=== PATIENT | female | born 1950 | race Caucasian/White ===

== ENCOUNTER 2017-02-18 10:23 | Emergency (ER) | payer OTHER, BC ==
[~2017-02-18] VITALS: Ht 160 cm; Wt 62.5 kg
[~2017-02-18 10:23] MED LIST: ASACOL400 MG PO; BENTYL20 MG PO; DELTASONE20 MG PO; FLAGYL500 MG PO; Tylenol Extra Streng PO
[2017-02-18] MEDS ORDERED: FLEXERIL10 MG PO (13:35)
[2017-02-18] MEDS ORDERED: ACETAMINOPHEN-1 EAC1 PO (13:35)
[2017-02-18 13:42] VITALS: BP 137/77
== END 2017-02-18 13:51 | disposition home or self-care (01) ==
LOC: EME 10:23
DX: S60.221A Contusion of right hand, initial encounter (principal); S39.012A Strain of muscle, fascia and tendon of lower back, initial encounter; S60.511A Abrasion of right hand, initial encounter; S61.302A Unspecified open wound of right middle finger with damage to nail, initial encounter; V47.5XXA Car driver injured in collision with fixed or stationary object in traffic accident, initial encounter; Y92.410 Unspecified street and highway as the place of occurrence of the external cause; M85.88 Other specified disorders of bone density and structure, other site; Z79.52 Long term (current) use of systemic steroids
CPT/HCPCS: 72100; 73130; 99281; 99283